=== PATIENT | male | born 1945 | race Two or more races ===

== ENCOUNTER 2020-10-11 18:23 | Inpatient (IN) | payer OTHER, MEDICAID ==
[~2020-10-11] VITALS: Ht 167.6 cm; Wt 94.6 kg
[2020-10-11 18:55] LABS: Basophils # (auto) 0.1 10 ^3/uL (0-0.2); Basophils % (auto) 0.9 % (0.0-2.0); Eosinophils # (auto) 0.1 10 ^3/uL (0-0.8); Eosinophils % (auto) 0.7 % (0.0-7.0); Hematocrit 35.2 % (41.0-53.0); Hemoglobin 11.7 g/dL (13.5-17.5); Lymphocytes # (auto) 1.3 10 ^3/uL (0.4-5.4); Lymphocytes % (auto) 16.7 % (10.0-50.0); Mean Corpuscular Hemoglobin 29.7 pg (28.0-32.0); Mean Corpuscular Hgb Conc. 33.3 g/dL (32.0-36.0); Mean Corpuscular Volume 89.4 fL (80.0-100.0); Monocytes # (auto) 0.6 10 ^3/uL (0-1.3); Monocytes % (auto) 7.7 % (0.0-12.0); Neutrophils # (auto) 5.7 10 ^3/uL (1.6-8.6); Nucleated Red Blood Cells % 0.1 %; Platelet Count (auto) 234 10^3/uL (140-450); Red Blood Cells 3.94 10^6/uL (4.5-5.90); Red Cell Distribution Width 15.5 % (11.8-14.3); White Blood Cell 7.7 10^3/uL (4.4-10.8)
[2020-10-11 19:08] LABS: Albumin 2.9 g/dL (3.4-5.0); BUN/Creatinine Ratio 14.1; Calcium 8.3 mg/dL (8.5-10.1); Magnesium 2.3 mg/dL (1.6-2.6); Potassium 4.7 mmol/L (3.5-5.1)
[2020-10-11 19:13] LABS: Bilirubin, Total 0.7 mg/dL (0.2-1.0); INR 1.08 (0.9-1.15); Partial Thromboplastin Time 28.9 sec (23.0-31.2); Total Protein 6.7 g/dL (6.4-8.2)
[2020-10-11] MEDS ORDERED: FUROSEMIDE 40 MG/4 ML VIAL IV ONE (23:30)
[2020-10-11] MEDS ORDERED: ENOXAPARIN SOD 100 MG/1 ML SYRINGE SC ONE (23:30)
[2020-10-11] MEDS ORDERED: cefTRIAXone 1GM/50ML D5W 50 ML IV ONE (23:45)
[2020-10-12] MEDS ORDERED: MORPHINE SULF INJ 2 MG/ML SYRINGE 1ML IV PRN (01:30)
[2020-10-12] MEDS ORDERED: DEXTROSE (50%) 50ML SYRG IV PRN (01:30)
[2020-10-12] MEDS ORDERED: HYDROcodone-ACET 5/325MG TAB PO PRN (01:30)
[2020-10-12] MEDS ORDERED: NITROGLYCERIN 0.4 MG SL TAB SL PRN (01:30)
[2020-10-12] MEDS ORDERED: ONDANSETRON HCL 4 MG/2 ML VIAL IV PRN (01:30)
[2020-10-12] MEDS ORDERED: DOCUSATE SOD 100 MG CAP PO PRN (01:30)
[2020-10-12 04:51] VITALS: BP 170/89
[2020-10-12] MEDS: SODIUM CHLOR 0.9% PF (SALINE LOCK) 10ML VIAL/SYR IV SCH ×3 (05:22→21:13)
[2020-10-12] MEDS: hydrALAZINE HCL 20 MG/ML VL IV PRN (05:23)
[2020-10-12 06:20] VITALS: BP 144/66
[2020-10-12] MEDS: ACCU-CHEK COMFORT CURVE STRIP VI SCH ×4 (06:36→21:13)
[2020-10-12] MEDS: InsuLIN REG 1unit/0.01ml Soln (100units/ml) SC SCH ×4 (06:37→21:12)
[2020-10-12 08:54] VITALS: BP 137/72
[2020-10-12] MEDS: MULTIPLE VITAMIN TAB PO SCH (09:42)
[2020-10-12] MEDS: FUROSEMIDE 20 MG/2 ML VIAL IV SCH (09:42)
[2020-10-12] MEDS: ZINC SULFATE 220mg CAP or TAB PO SCH (09:42)
[2020-10-12] MEDS: FAMOTIDINE (10MG/ML) 2ML VL IV SCH (09:42)
[2020-10-12] MEDS: ASCORBIC ACID 500 MG TAB PO SCH ×2 (09:43→21:13)
[2020-10-12 09:58] LABS: Basophils # (auto) 0.1 10 ^3/uL (0-0.2); Basophils % (auto) 0.9 % (0.0-2.0); Eosinophils # (auto) 0 10 ^3/uL (0-0.8); Eosinophils % (auto) 0.4 % (0.0-7.0); Hematocrit 33.8 % (41.0-53.0); Hemoglobin 11.6 g/dL (13.5-17.5); Lymphocytes # (auto) 1.3 10 ^3/uL (0.4-5.4); Lymphocytes % (auto) 16.7 % (10.0-50.0); Mean Corpuscular Hemoglobin 29.8 pg (28.0-32.0); Mean Corpuscular Hgb Conc. 34.2 g/dL (32.0-36.0); Mean Corpuscular Volume 87.2 fL (80.0-100.0); Monocytes # (auto) 0.6 10 ^3/uL (0-1.3); Platelet Count (auto) 243 10^3/uL (140-450); Red Blood Cells 3.88 10^6/uL (4.5-5.90); Red Cell Distribution Width 15.4 % (11.8-14.3)
[2020-10-12 10:01] LABS: Albumin 2.9 g/dL (3.4-5.0); Calcium 8.8 mg/dL (8.5-10.1); Potassium 3.8 mmol/L (3.5-5.1)
[2020-10-12 10:04] LABS: BUN/Creatinine Ratio 15.7; Bilirubin, Total 0.8 mg/dL (0.2-1.0); Total Protein 6.6 g/dL (6.4-8.2)
[2020-10-12] MEDS ORDERED: LACTULOSE 20Gm/30ML SOLN PO PRN (11:15)
[2020-10-12] MEDS: Glucerna Carbsteady SHAKE Vanilla 8oz PO SCH ×2 (12:38→18:00)
[2020-10-12 12:39] VITALS: BP 136/78
[2020-10-12] MEDS ORDERED: OPTISON 3ml Vial for INJ IV ONE ×2 (15:04→15:18)
[2020-10-12 16:43] VITALS: BP 148/72
[2020-10-12] MEDS ORDERED: ALOG1TAB PO (17:11)
[2020-10-12] MEDS ORDERED: FURO40TA4 PO (17:11)
[2020-10-12] MEDS ORDERED: ISOS30TA4 PO (17:11)
[2020-10-12] MEDS ORDERED: ALLO100T PO (17:11)
[2020-10-12] MEDS ORDERED: LISI-646 PO (17:11)
[2020-10-12] MEDS ORDERED: INSU1INJ19 SC (17:11)
[2020-10-12] MEDS ORDERED: METO-159 PO (17:11)
[2020-10-12] MEDS ORDERED: EZET10TA22 PO (17:11)
[2020-10-12] MEDS ORDERED: ATOR80TA PO (17:11)
[2020-10-12] MEDS ORDERED: GABA300C10 PO (17:11)
[2020-10-12] MEDS ORDERED: LEVO50TA7 PO (17:11)
[2020-10-12] MEDS ORDERED: NITR0.4S29 SL (17:11)
[2020-10-12 22:00] VITALS: BP 139/66
[2020-10-13 05:00] VITALS: BP 161/89
[2020-10-13] MEDS: SODIUM CHLOR 0.9% PF (SALINE LOCK) 10ML VIAL/SYR IV SCH ×3 (06:38→22:00)
[2020-10-13] MEDS: InsuLIN REG 1unit/0.01ml Soln (100units/ml) SC SCH ×4 (06:39→23:00)
[2020-10-13] MEDS: ACCU-CHEK COMFORT CURVE STRIP VI SCH ×4 (06:39→23:00)
[2020-10-13] MEDS: hydrALAZINE HCL 20 MG/ML VL IV PRN (06:39)
[2020-10-13 06:52] LABS: Basophils # (auto) 0.1 10 ^3/uL (0-0.2); Basophils % (auto) 0.7 % (0.0-2.0); Eosinophils # (auto) 0.1 10 ^3/uL (0-0.8); Eosinophils % (auto) 0.9 % (0.0-7.0); Hematocrit 36.9 % (41.0-53.0); Hemoglobin 12.6 g/dL (13.5-17.5); Lymphocytes # (auto) 1.9 10 ^3/uL (0.4-5.4); Lymphocytes % (auto) 22.9 % (10.0-50.0); Mean Corpuscular Hemoglobin 30.3 pg (28.0-32.0); Mean Corpuscular Hgb Conc. 34.3 g/dL (32.0-36.0); Mean Corpuscular Volume 88.4 fL (80.0-100.0); Monocytes # (auto) 0.6 10 ^3/uL (0-1.3); Neutrophils # (auto) 5.8 10 ^3/uL (1.6-8.6); Neutrophils % (auto) 68.5 % (37.0-80.0); Platelet Count (auto) 269 10^3/uL (140-450); Red Blood Cells 4.17 10^6/uL (4.5-5.90); Red Cell Distribution Width 15.4 % (11.8-14.3); White Blood Cell 8.5 10^3/uL (4.4-10.8)
[2020-10-13 07:16] LABS: Potassium 4.2 mmol/L (3.5-5.1)
[2020-10-13 07:29] LABS: Albumin 3.1 g/dL (3.4-5.0); BUN/Creatinine Ratio 13.5; Bilirubin, Total 0.9 mg/dL (0.2-1.0); Calcium 9.3 mg/dL (8.5-10.1); Total Protein 7.4 g/dL (6.4-8.2)
[2020-10-13 08:00] VITALS: BP 147/79
[2020-10-13] MEDS: ASCORBIC ACID 500 MG TAB PO SCH ×2 (08:42→23:00)
[2020-10-13] MEDS: MULTIPLE VITAMIN TAB PO SCH (08:42)
[2020-10-13] MEDS: ZINC SULFATE 220mg CAP or TAB PO SCH (08:42)
[2020-10-13] MEDS: FAMOTIDINE (10MG/ML) 2ML VL IV SCH (08:43)
[2020-10-13] MEDS: FUROSEMIDE 20 MG/2 ML VIAL IV SCH (08:43)
[2020-10-13] MEDS: Glucerna Carbsteady SHAKE Vanilla 8oz PO SCH ×3 (08:44→18:00)
[2020-10-13 09:00] VITALS: BP 147/79
[2020-10-13] MEDS ORDERED: cefTRIAXone 1GM/50ML D5W 50 ML IV ONE (11:15)
[2020-10-13] MEDS: ACETYLCYSTEINE ORAL for CIN 20%(200MG/ML) 4ML PO SCH (11:28)
[2020-10-13] MEDS: METOPROLOL TARTRATE 25 MG TAB PO SCH ×2 (11:30→23:00)
[2020-10-13] MEDS: ENOXAPARIN SOD 100 MG/1 ML SYRINGE SC SCH ×2 (11:31→23:00)
[2020-10-13 13:00] VITALS: BP_SYST 137; BP_SYST 145; BP_DIAS 70; BP_DIAS 98
[2020-10-13] MEDS: DOBUTamine 1000MCG/ML 250 ML IV SCH ×2 (14:36→21:00)
[2020-10-13] MEDS: CLINDAMYCIN 300MG IV 50 ML IV SCH ×2 (14:50→22:00)
[2020-10-13 17:00] VITALS: BP 150/70
[2020-10-13 22:00] VITALS: BP 157/76
[2020-10-14] MEDS: ACETYLCYSTEINE ORAL for CIN 20%(200MG/ML) 4ML PO SCH ×3 (00:12→22:28)
[2020-10-14 02:09] LABS: Urine Bacteria FEW /hpf (None Seen); Urine Blood Negative /uL (Negative); Urine Hyaline Cast MOD /lpf (0 - 2); Urine Specific Gravity 1.023 (1.001-1.035); Urine WBC 1 /hpf (0 - 3)
[2020-10-14 05:00] VITALS: BP 156/80
[2020-10-14] MEDS: DOBUTamine 1000MCG/ML 250 ML IV SCH ×3 (05:04→22:29)
[2020-10-14] MEDS: SODIUM CHLOR 0.9% PF (SALINE LOCK) 10ML VIAL/SYR IV SCH ×3 (06:23→21:38)
[2020-10-14] MEDS: CLINDAMYCIN 300MG IV 50 ML IV SCH (06:23)
[2020-10-14] MEDS: InsuLIN REG 1unit/0.01ml Soln (100units/ml) SC SCH ×4 (06:31→21:48)
[2020-10-14] MEDS: ACCU-CHEK COMFORT CURVE STRIP VI SCH ×4 (06:32→21:39)
[2020-10-14] MEDS ORDERED: LIDOCAINE 2%HCL (LOCAL ANESTH.) INJ 20ML MDV ONE (07:17)
[2020-10-14] MEDS ORDERED: IODIXANOL 320MG/ML 100ML BTL IV ONE ×2 (07:17→09:13)
[2020-10-14 07:53] LABS: Basophils # (auto) 0.1 10 ^3/uL (0-0.2); Basophils % (auto) 0.9 % (0.0-2.0); Eosinophils # (auto) 0 10 ^3/uL (0-0.8); Eosinophils % (auto) 0.2 % (0.0-7.0); Hematocrit 35.3 % (41.0-53.0); Hemoglobin 11.6 g/dL (13.5-17.5); Lymphocytes % (auto) 12.1 % (10.0-50.0); Mean Corpuscular Hemoglobin 28.9 pg (28.0-32.0); Mean Corpuscular Hgb Conc. 32.8 g/dL (32.0-36.0); Mean Corpuscular Volume 88.2 fL (80.0-100.0); Monocytes # (auto) 0.6 10 ^3/uL (0-1.3); Monocytes % (auto) 7.6 % (0.0-12.0); Neutrophils # (auto) 6.2 10 ^3/uL (1.6-8.6); Neutrophils % (auto) 79.2 % (37.0-80.0); Nucleated Red Blood Cells % 0.1 %; Platelet Count (auto) 271 10^3/uL (140-450); Red Blood Cells 4.01 10^6/uL (4.5-5.90); Red Cell Distribution Width 15.7 % (11.8-14.3); White Blood Cell 7.9 10^3/uL (4.4-10.8)
[2020-10-14] MEDS: Glucerna Carbsteady SHAKE Vanilla 8oz PO SCH ×3 (07:53→18:55)
[2020-10-14] MEDS ORDERED: fentaNYL CITRATE 100 MCG/2 ML VL ONE (08:00)
[2020-10-14] MEDS ORDERED: HEPARIN SODIUM (PORCINE) 5000 UNITS/ML 1ML VIAL ONE (08:00)
[2020-10-14] MEDS ORDERED: ANGIOMAX 250 MG VIAL IV ONE ×2 (08:00→09:12)
[2020-10-14] MEDS ORDERED: MIDAZOLAM HCL 1MG/1ML-2 ML VIAL ONE (08:00)
[2020-10-14] MEDS ORDERED: VERAPAMIL 2.5MG/ML INJ 2ML VIAL IV ONE (08:00)
[2020-10-14] MEDS ORDERED: SODIUM CHL 0.9% 50 ML ONE ×2 (08:01→09:12)
[2020-10-14 08:07] LABS: BUN/Creatinine Ratio 12.3; Calcium 9.5 mg/dL (8.5-10.1); Potassium 4.4 mmol/L (3.5-5.1)
[2020-10-14 08:10] LABS: INR 1.03 (0.9-1.15)
[2020-10-14 08:43] VITALS: BP 154/71
[2020-10-14] MEDS ORDERED: cefTRIAXone 1GM/50ML D5W 50 ML IV SCH (09:00)
[2020-10-14] MEDS: MULTIPLE VITAMIN TAB PO SCH (10:00)
[2020-10-14] MEDS: ASCORBIC ACID 500 MG TAB PO SCH ×2 (10:00→21:53)
[2020-10-14] MEDS: FAMOTIDINE (10MG/ML) 2ML VL IV SCH (10:00)
[2020-10-14] MEDS: ENOXAPARIN SOD 100 MG/1 ML SYRINGE SC SCH ×2 (10:00→22:28)
[2020-10-14] MEDS: ZINC SULFATE 220mg CAP or TAB PO SCH (10:00)
[2020-10-14] MEDS: METOPROLOL TARTRATE 25 MG TAB PO SCH ×2 (12:30→22:28)
[2020-10-14 13:00] VITALS: BP 143/91
[2020-10-14] MEDS ORDERED: levoFLOXacin 500MG 100 ML IV ONE (14:15)
[2020-10-14 17:00] VITALS: BP 150/81
[2020-10-14] MEDS: ATORVASTATIN 20 MG TAB PO SCH (21:53)
[2020-10-14 22:00] VITALS: BP 114/71
[2020-10-14] MEDS ORDERED: INSULIN LANTUS (GLARGINE) 1 /0.01ml (100units/ml) SC SCH (22:00)
[2020-10-15 05:08] VITALS: BP 125/61
[2020-10-15] MEDS: SODIUM CHLOR 0.9% PF (SALINE LOCK) 10ML VIAL/SYR IV SCH ×3 (05:26→21:25)
[2020-10-15] MEDS: ACCU-CHEK COMFORT CURVE STRIP VI SCH ×4 (06:21→22:07)
[2020-10-15] MEDS: LEVOTHYROXINE SODIUM 50 MCG TAB PO SCH (06:21)
[2020-10-15] MEDS: InsuLIN REG 1unit/0.01ml Soln (100units/ml) SC SCH ×4 (06:26→22:00)
[2020-10-15 06:54] LABS: Magnesium 2.3 mg/dL (1.6-2.6); Potassium 4.7 mmol/L (3.5-5.1)
[2020-10-15 07:02] LABS: Albumin 2.8 g/dL (3.4-5.0); BUN/Creatinine Ratio 9.6; Bilirubin, Total 0.9 mg/dL (0.2-1.0); Calcium 8.7 mg/dL (8.5-10.1); Total Protein 6.8 g/dL (6.4-8.2)
[2020-10-15] MEDS: DOBUTamine 1000MCG/ML 250 ML IV SCH ×2 (08:05→17:14)
[2020-10-15 08:30] VITALS: BP 129/63
[2020-10-15] MEDS: levoFLOXacin 250MG 50 ML IV SCH (09:35)
[2020-10-15] MEDS: Glucerna Carbsteady SHAKE Vanilla 8oz PO SCH ×3 (09:35→18:26)
[2020-10-15] MEDS: FAMOTIDINE (10MG/ML) 2ML VL IV SCH (09:36)
[2020-10-15] MEDS: ZINC SULFATE 220mg CAP or TAB PO SCH (09:36)
[2020-10-15] MEDS: MULTIPLE VITAMIN TAB PO SCH (09:37)
[2020-10-15] MEDS: METOPROLOL TARTRATE 25 MG TAB PO SCH ×2 (09:37→21:25)
[2020-10-15] MEDS: ASCORBIC ACID 500 MG TAB PO SCH ×2 (09:37→21:26)
[2020-10-15] MEDS: CLOPIDOGREL BISULFATE 75 MG TAB PO SCH (09:37)
[2020-10-15] MEDS: ENOXAPARIN SOD 100 MG/1 ML SYRINGE SC SCH (09:38)
[2020-10-15] MEDS ORDERED: ASPirin 81 mg TAB PO SCH (10:00)
[2020-10-15 12:30] VITALS: BP 152/69
[2020-10-15] MEDS ORDERED: CHOLECALCIFEROL (VITD3) 2,000 UNIT CAP/TAB PO ONE (13:45)
[2020-10-15 17:00] VITALS: BP 119/69
[2020-10-15] MEDS ORDERED: BUMETANIDE 2.5mg/10ml (0.25 mg/ml) INJ IV ONE (19:45)
[2020-10-15] MEDS: ATORVASTATIN 20 MG TAB PO SCH (21:25)
[2020-10-15 22:00] VITALS: BP 118/73
[2020-10-15] MEDS: INSULIN LANTUS (GLARGINE) 1 /0.01ml (100units/ml) SC SCH (22:06)
[2020-10-16] MEDS: DOBUTamine 1000MCG/ML 250 ML IV SCH (00:59)
[2020-10-16 04:46] VITALS: BP 133/77
[2020-10-16] MEDS: SODIUM CHLOR 0.9% PF (SALINE LOCK) 10ML VIAL/SYR IV SCH ×3 (06:29→22:00)
[2020-10-16] MEDS: InsuLIN REG 1unit/0.01ml Soln (100units/ml) SC SCH ×5 (06:29→22:00)
[2020-10-16] MEDS: ACCU-CHEK COMFORT CURVE STRIP VI SCH ×4 (06:29→21:30)
[2020-10-16 06:46] LABS: BUN/Creatinine Ratio 9.3; Calcium 8.5 mg/dL (8.5-10.1); Magnesium 2.7 mg/dL (1.6-2.6)
[2020-10-16] MEDS: LEVOTHYROXINE SODIUM 50 MCG TAB PO SCH (06:49)
[2020-10-16 06:54] LABS: Potassium 5.9 mmol/L (3.5-5.1)
[2020-10-16] MEDS: Glucerna Carbsteady SHAKE Vanilla 8oz PO SCH ×3 (08:00→18:14)
[2020-10-16] MEDS ORDERED: SODIUM ZIRCONIUM CYCL 10 GM PAK PO ONE (08:30)
[2020-10-16 09:00] VITALS: BP 132/69
[2020-10-16] MEDS ORDERED: ENOXAPARIN SOD 100 MG/1 ML SYRINGE SC SCH (10:00)
[2020-10-16] MEDS ORDERED: BUMETANIDE 2.5mg/10ml (0.25 mg/ml) INJ IV SCH (10:00)
[2020-10-16] MEDS: METOPROLOL TARTRATE 25 MG TAB PO SCH ×3 (10:00→23:00)
[2020-10-16] MEDS ORDERED: ALBUTEROL SULF 2.5 MG/0.5ML(0.5%) NEB SOLN NEB ONE (10:30)
[2020-10-16] MEDS ORDERED: SODIUM BICARBONATE 8.4% INJ 50ML SYRINGE IV ONE (10:30)
[2020-10-16] MEDS: FAMOTIDINE (10MG/ML) 2ML VL IV SCH (11:38)
[2020-10-16] MEDS: BUMETANIDE 2.5mg/10ml (0.25 mg/ml) INJ IV SCH ×2 (11:51→17:57)
[2020-10-16] MEDS: CHOLECALCIFEROL (VITD3) 2,000 UNIT CAP/TAB PO SCH (11:52)
[2020-10-16] MEDS: CLOPIDOGREL BISULFATE 75 MG TAB PO SCH (11:52)
[2020-10-16] MEDS: ASCORBIC ACID 500 MG TAB PO SCH ×2 (11:53→22:00)
[2020-10-16] MEDS: levoFLOXacin 250MG 50 ML IV SCH (11:53)
[2020-10-16 12:57] VITALS: BP 127/75
[2020-10-16] MEDS ORDERED: CLINDAMYCIN 300MG IV 50 ML IV ONE (15:00)
[2020-10-16] MEDS: SODIUM ZIRCONIUM CYCL 10 GM PAK PO SCH ×2 (15:20→22:00)
[2020-10-16 17:00] VITALS: BP 117/67
[2020-10-16] MEDS: CEFEPIME 1 GM in SODIUM CHL 0.9% 50 ML IV ONE ×2 (18:00→19:28)
[2020-10-16 22:00] VITALS: BP 116/73
[2020-10-16] MEDS ORDERED: SODIUM ZIRCONIUM CYCL 10 GM PAK PO SCH (22:00)
[2020-10-16] MEDS: CLINDAMYCIN 300MG IV 50 ML IV SCH (22:00)
[2020-10-16] MEDS: INSULIN LANTUS (GLARGINE) 1 /0.01ml (100units/ml) SC SCH (22:00)
[2020-10-16] MEDS: ATORVASTATIN 20 MG TAB PO SCH (22:00)
[2020-10-17 05:05] VITALS: BP 131/73
[2020-10-17] MEDS: METOPROLOL TARTRATE 25 MG TAB PO SCH ×2 (05:59→11:38)
[2020-10-17] MEDS: SODIUM ZIRCONIUM CYCL 10 GM PAK PO SCH ×3 (06:00→23:14)
[2020-10-17] MEDS: BUMETANIDE 2.5mg/10ml (0.25 mg/ml) INJ IV SCH (06:20)
[2020-10-17] MEDS: SODIUM CHLOR 0.9% PF (SALINE LOCK) 10ML VIAL/SYR IV SCH ×3 (06:20→23:11)
[2020-10-17] MEDS: CLINDAMYCIN 300MG IV 50 ML IV SCH ×3 (06:20→23:11)
[2020-10-17] MEDS: LEVOTHYROXINE SODIUM 50 MCG TAB PO SCH (07:00)
[2020-10-17 07:18] LABS: Potassium 4.6 mmol/L (3.5-5.1)
[2020-10-17 07:25] LABS: Calcium 8.3 mg/dL (8.5-10.1)
[2020-10-17] MEDS: Glucerna Carbsteady SHAKE Vanilla 8oz PO SCH ×3 (08:00→18:22)
[2020-10-17 09:00] VITALS: BP 115/68
[2020-10-17] MEDS ORDERED: BUMETANIDE 2.5mg/10ml (0.25 mg/ml) INJ IV SCH (10:00)
[2020-10-17] MEDS: ALBUMIN 25% 50 ML IV SCH ×2 (11:33→18:32)
[2020-10-17] MEDS: FAMOTIDINE (10MG/ML) 2ML VL IV SCH (11:39)
[2020-10-17] MEDS: CEFEPIME 1 GM in SODIUM CHL 0.9% 50 ML IV SCH (11:39)
[2020-10-17] MEDS: CHOLECALCIFEROL (VITD3) 2,000 UNIT CAP/TAB PO SCH (11:40)
[2020-10-17] MEDS: CLOPIDOGREL BISULFATE 75 MG TAB PO SCH (11:40)
[2020-10-17] MEDS: ASPirin 81 mg TAB PO SCH (11:40)
[2020-10-17] MEDS: ASCORBIC ACID 500 MG TAB PO SCH ×2 (11:40→23:14)
[2020-10-17] MEDS: ENOXAPARIN SOD 30 MG/0.3 ML SYRINGE SC SCH (11:40)
[2020-10-17] MEDS ORDERED: DEXTROSE (50%) 50ML SYRG IV PRN (12:30)
[2020-10-17 13:00] VITALS: BP 133/76
[2020-10-17 17:00] VITALS: BP 138/84
[2020-10-17] MEDS: InsuLIN REG 1unit/0.01ml Soln (100units/ml) SC SCH ×2 (17:00→22:00)
[2020-10-17] MEDS: ACCU-CHEK COMFORT CURVE STRIP VI SCH ×2 (17:00→22:00)
[2020-10-17 22:00] VITALS: BP 123/66
[2020-10-17] MEDS: INSULIN LANTUS (GLARGINE) 1 /0.01ml (100units/ml) SC SCH (22:00)
[2020-10-17] MEDS: ATORVASTATIN 20 MG TAB PO SCH (23:11)
[2020-10-18 05:00] VITALS: BP 132/71
[2020-10-18] MEDS: ALBUMIN 25% 50 ML IV SCH (05:02)
[2020-10-18 06:00] LABS: Basophils # (auto) 0 10 ^3/uL (0-0.2); Basophils % (auto) 0.5 % (0.0-2.0); Eosinophils # (auto) 0 10 ^3/uL (0-0.8); Eosinophils % (auto) 0.3 % (0.0-7.0); Hematocrit 31.1 % (41.0-53.0); Hemoglobin 10.4 g/dL (13.5-17.5); Lymphocytes # (auto) 0.8 10 ^3/uL (0.4-5.4); Lymphocytes % (auto) 11.1 % (10.0-50.0); Mean Corpuscular Hemoglobin 29.4 pg (28.0-32.0); Mean Corpuscular Hgb Conc. 33.5 g/dL (32.0-36.0); Mean Corpuscular Volume 87.7 fL (80.0-100.0); Monocytes # (auto) 0.7 10 ^3/uL (0-1.3); Monocytes % (auto) 9.2 % (0.0-12.0); Neutrophils # (auto) 5.7 10 ^3/uL (1.6-8.6); Neutrophils % (auto) 78.9 % (37.0-80.0); Platelet Count (auto) 222 10^3/uL (140-450); Red Blood Cells 3.54 10^6/uL (4.5-5.90); Red Cell Distribution Width 15.7 % (11.8-14.3); White Blood Cell 7.3 10^3/uL (4.4-10.8)
[2020-10-18 06:23] LABS: Calcium 7.8 mg/dL (8.5-10.1)
[2020-10-18 06:25] LABS: BUN/Creatinine Ratio 11.3
[2020-10-18 06:30] LABS: Potassium 5.8 mmol/L (3.5-5.1)
[2020-10-18] MEDS: SODIUM CHLOR 0.9% PF (SALINE LOCK) 10ML VIAL/SYR IV SCH ×3 (06:35→21:56)
[2020-10-18] MEDS: CLINDAMYCIN 300MG IV 50 ML IV SCH ×3 (06:35→21:56)
[2020-10-18] MEDS: SODIUM ZIRCONIUM CYCL 10 GM PAK PO SCH ×3 (06:35→21:57)
[2020-10-18] MEDS: ACCU-CHEK COMFORT CURVE STRIP VI SCH ×4 (06:36→21:59)
[2020-10-18] MEDS: LEVOTHYROXINE SODIUM 50 MCG TAB PO SCH (06:36)
[2020-10-18] MEDS: InsuLIN REG 1unit/0.01ml Soln (100units/ml) SC SCH ×4 (06:36→21:59)
[2020-10-18] MEDS: Glucerna Carbsteady SHAKE Vanilla 8oz PO SCH ×3 (08:00→18:26)
[2020-10-18 09:00] VITALS: BP 127/80
[2020-10-18] MEDS ORDERED: SODIUM ZIRCONIUM CYCL 10 GM PAK PO ONE (09:15)
[2020-10-18] MEDS ORDERED: SODIUM BICARBONATE 8.4% INJ 50ML SYRINGE IV ONE (09:15)
[2020-10-18] MEDS ORDERED: ALBUTEROL SULF 2.5 MG/0.5ML(0.5%) NEB SOLN NEB ONE (09:15)
[2020-10-18] MEDS ORDERED: SODIUM BICARBONATE 8.4 % INJ 50ML VIAL IV ONE (09:30)
[2020-10-18] MEDS ORDERED: CALCIUM GLUC 4.65meq/50ml D5AE 50 ML IV ONE (09:30)
[2020-10-18] MEDS ORDERED: InsuLIN REG 1unit/0.01ml Soln (100units/ml) IV ONE (09:30)
[2020-10-18] MEDS ORDERED: SODIUM ZIRCONIUM CYCL 10 GM PAK PO SCH (09:30)
[2020-10-18] MEDS ORDERED: DEXTROSE (50%) 50ML SYRG IV ONE (09:30)
[2020-10-18] MEDS: BUMETANIDE 2.5mg/10ml (0.25 mg/ml) INJ IV SCH ×2 (10:00→17:48)
[2020-10-18] MEDS: FLORASTOR (S. BOULARDII) 250 MG CAP PO SCH (11:45)
[2020-10-18] MEDS: CEFEPIME 1 GM in SODIUM CHL 0.9% 50 ML IV SCH (11:45)
[2020-10-18] MEDS: ASPirin 81 mg TAB PO SCH (11:45)
[2020-10-18] MEDS: CLOPIDOGREL BISULFATE 75 MG TAB PO SCH (11:46)
[2020-10-18] MEDS: ENOXAPARIN SOD 30 MG/0.3 ML SYRINGE SC SCH (12:02)
[2020-10-18] MEDS: CHOLECALCIFEROL (VITD3) 2,000 UNIT CAP/TAB PO SCH (12:02)
[2020-10-18] MEDS: ASCORBIC ACID 500 MG TAB PO SCH ×2 (12:02→21:58)
[2020-10-18 13:00] VITALS: BP 139/73
[2020-10-18] MEDS: ACETAMINOPHEN 325 MG TAB PO PRN (13:31)
[2020-10-18 16:55] VITALS: BP 138/73
[2020-10-18 17:15] LABS: BUN/Creatinine Ratio 11.9; Calcium 7.9 mg/dL (8.5-10.1); Potassium 4.2 mmol/L (3.5-5.1)
[2020-10-18] MEDS: ATORVASTATIN 20 MG TAB PO SCH (21:56)
[2020-10-18] MEDS: METOPROLOL TARTRATE 25 MG TAB PO SCH (21:58)
[2020-10-18] MEDS: INSULIN LANTUS (GLARGINE) 1 /0.01ml (100units/ml) SC SCH (21:59)
[2020-10-18 22:00] VITALS: BP 144/71
[2020-10-19 05:00] VITALS: BP 143/77
[2020-10-19 05:42] LABS: Basophils # (auto) 0 10 ^3/uL (0-0.2); Basophils % (auto) 0.6 % (0.0-2.0); Eosinophils # (auto) 0.1 10 ^3/uL (0-0.8); Eosinophils % (auto) 1.6 % (0.0-7.0); Hematocrit 30.8 % (41.0-53.0); Hemoglobin 10.6 g/dL (13.5-17.5); Lymphocytes # (auto) 0.6 10 ^3/uL (0.4-5.4); Lymphocytes % (auto) 7.8 % (10.0-50.0); Mean Corpuscular Hemoglobin 29.9 pg (28.0-32.0); Mean Corpuscular Hgb Conc. 34.3 g/dL (32.0-36.0); Mean Corpuscular Volume 87.1 fL (80.0-100.0); Monocytes # (auto) 0.8 10 ^3/uL (0-1.3); Monocytes % (auto) 10.1 % (0.0-12.0); Neutrophils # (auto) 6.4 10 ^3/uL (1.6-8.6); Neutrophils % (auto) 79.9 % (37.0-80.0); Platelet Count (auto) 240 10^3/uL (140-450); Red Blood Cells 3.54 10^6/uL (4.5-5.90); Red Cell Distribution Width 15.1 % (11.8-14.3); White Blood Cell 8.1 10^3/uL (4.4-10.8)
[2020-10-19] MEDS: BUMETANIDE 2.5mg/10ml (0.25 mg/ml) INJ IV SCH ×3 (06:07→18:05)
[2020-10-19] MEDS: CLINDAMYCIN 300MG IV 50 ML IV SCH ×3 (06:07→20:21)
[2020-10-19] MEDS: SODIUM CHLOR 0.9% PF (SALINE LOCK) 10ML VIAL/SYR IV SCH ×3 (06:08→20:22)
[2020-10-19] MEDS: SODIUM ZIRCONIUM CYCL 10 GM PAK PO SCH (06:08)
[2020-10-19] MEDS: LEVOTHYROXINE SODIUM 50 MCG TAB PO SCH (06:08)
[2020-10-19] MEDS: ACCU-CHEK COMFORT CURVE STRIP VI SCH ×4 (06:08→20:22)
[2020-10-19] MEDS: InsuLIN REG 1unit/0.01ml Soln (100units/ml) SC SCH ×4 (06:09→22:00)
[2020-10-19 06:13] LABS: Potassium 4.2 mmol/L (3.5-5.1)
[2020-10-19 06:18] LABS: BUN/Creatinine Ratio 12.5; Calcium 7.7 mg/dL (8.5-10.1)
[2020-10-19] MEDS: Glucerna Carbsteady SHAKE Vanilla 8oz PO SCH ×3 (08:00→18:05)
[2020-10-19 09:00] VITALS: BP 147/84
[2020-10-19] MEDS: CHOLECALCIFEROL (VITD3) 2,000 UNIT CAP/TAB PO SCH (10:17)
[2020-10-19] MEDS: FLORASTOR (S. BOULARDII) 250 MG CAP PO SCH (10:18)
[2020-10-19] MEDS: CLOPIDOGREL BISULFATE 75 MG TAB PO SCH (10:18)
[2020-10-19] MEDS: ASCORBIC ACID 500 MG TAB PO SCH ×2 (10:18→20:21)
[2020-10-19] MEDS: ASPirin 81 mg TAB PO SCH (10:18)
[2020-10-19] MEDS: METOPROLOL TARTRATE 25 MG TAB PO SCH ×2 (10:19→20:21)
[2020-10-19] MEDS: FAMOTIDINE (10MG/ML) 2ML VL IV SCH (10:19)
[2020-10-19] MEDS: ENOXAPARIN SOD 30 MG/0.3 ML SYRINGE SC SCH (10:20)
[2020-10-19] MEDS: CEFEPIME 1 GM in SODIUM CHL 0.9% 50 ML IV SCH (10:20)
[2020-10-19 13:00] VITALS: BP 123/76
[2020-10-19] MEDS: SOD CHL 0.45% 1,000 ML IV SCH (15:33)
[2020-10-19 16:46] VITALS: BP 139/75
[2020-10-19] MEDS: ATORVASTATIN 20 MG TAB PO SCH (20:20)
[2020-10-19 22:00] VITALS: BP 148/79
[2020-10-19] MEDS: INSULIN LANTUS (GLARGINE) 1 /0.01ml (100units/ml) SC SCH (22:00)
[2020-10-20 05:07] VITALS: BP 149/77
[2020-10-20] MEDS: SOD CHL 0.45% 1,000 ML IV SCH (05:35)
[2020-10-20] MEDS: BUMETANIDE 2.5mg/10ml (0.25 mg/ml) INJ IV SCH ×2 (05:36→18:39)
[2020-10-20] MEDS: CLINDAMYCIN 300MG IV 50 ML IV SCH ×3 (05:36→21:30)
[2020-10-20] MEDS: SODIUM CHLOR 0.9% PF (SALINE LOCK) 10ML VIAL/SYR IV SCH ×2 (05:36→15:03)
[2020-10-20] MEDS: ACCU-CHEK COMFORT CURVE STRIP VI SCH ×4 (05:37→21:32)
[2020-10-20] MEDS: LEVOTHYROXINE SODIUM 50 MCG TAB PO SCH (05:37)
[2020-10-20] MEDS: InsuLIN REG 1unit/0.01ml Soln (100units/ml) SC SCH ×4 (05:37→21:30)
[2020-10-20 06:07] LABS: Basophils # (auto) 0.1 10 ^3/uL (0-0.2); Eosinophils # (auto) 0.2 10 ^3/uL (0-0.8); Eosinophils % (auto) 2.4 % (0.0-7.0); Hematocrit 30.6 % (41.0-53.0); Hemoglobin 10.8 g/dL (13.5-17.5); Lymphocytes # (auto) 0.9 10 ^3/uL (0.4-5.4); Lymphocytes % (auto) 10.8 % (10.0-50.0); Mean Corpuscular Hemoglobin 30.4 pg (28.0-32.0); Mean Corpuscular Hgb Conc. 35.3 g/dL (32.0-36.0); Mean Corpuscular Volume 86.2 fL (80.0-100.0); Monocytes % (auto) 11.7 % (0.0-12.0); Neutrophils # (auto) 6.2 10 ^3/uL (1.6-8.6); Neutrophils % (auto) 74.1 % (37.0-80.0); Platelet Count (auto) 253 10^3/uL (140-450); Red Blood Cells 3.55 10^6/uL (4.5-5.90); Red Cell Distribution Width 15.2 % (11.8-14.3); White Blood Cell 8.4 10^3/uL (4.4-10.8)
[2020-10-20 06:13] LABS: INR 1.08 (0.9-1.15)
[2020-10-20 06:19] LABS: Potassium 3.3 mmol/L (3.5-5.1)
[2020-10-20 06:26] LABS: Albumin 3.2 g/dL (3.4-5.0); BUN/Creatinine Ratio 14.4; Bilirubin, Total 0.8 mg/dL (0.2-1.0); Calcium 7.7 mg/dL (8.5-10.1)
[2020-10-20] MEDS: Glucerna Carbsteady SHAKE Vanilla 8oz PO SCH ×3 (08:51→18:40)
[2020-10-20 09:00] VITALS: BP 140/71
[2020-10-20 09:42] LABS: Folate (Folic Acid) > 24.00 ng/mL (5.38-24)
[2020-10-20] MEDS ORDERED: MULTIPLE VITAMIN TAB PO ONE (10:45)
[2020-10-20] MEDS ORDERED: POTASSIUM CHLORIDE 8 MEQ TAB PO ONE (10:45)
[2020-10-20] MEDS: ASPirin 81 mg TAB PO SCH (10:59)
[2020-10-20] MEDS: CHOLECALCIFEROL (VITD3) 2,000 UNIT CAP/TAB PO SCH (11:00)
[2020-10-20] MEDS: ASCORBIC ACID 500 MG TAB PO SCH ×2 (11:00→21:32)
[2020-10-20] MEDS: CLOPIDOGREL BISULFATE 75 MG TAB PO SCH (11:00)
[2020-10-20] MEDS: ENOXAPARIN SOD 30 MG/0.3 ML SYRINGE SC SCH (11:00)
[2020-10-20] MEDS: FLORASTOR (S. BOULARDII) 250 MG CAP PO SCH (11:01)
[2020-10-20] MEDS: CEFEPIME 1 GM in SODIUM CHL 0.9% 50 ML IV SCH (11:01)
[2020-10-20] MEDS: METOPROLOL TARTRATE 25 MG TAB PO SCH ×2 (11:01→21:31)
[2020-10-20 13:00] VITALS: BP 127/65
[2020-10-20 17:00] VITALS: BP 145/78
[2020-10-20 18:20] LABS: BUN/Creatinine Ratio 15.5; Calcium 7.8 mg/dL (8.5-10.1); Potassium 3.9 mmol/L (3.5-5.1)
[2020-10-20] MEDS: INSULIN LANTUS (GLARGINE) 1 /0.01ml (100units/ml) SC SCH (21:30)
[2020-10-20] MEDS: ATORVASTATIN 20 MG TAB PO SCH (21:31)
[2020-10-20 22:00] VITALS: BP 151/77
[2020-10-21] MEDS: SODIUM CHLOR 0.9% PF (SALINE LOCK) 10ML VIAL/SYR IV SCH ×4 (02:21→22:06)
[2020-10-21 05:00] VITALS: BP 136/73
[2020-10-21 05:35] LABS: Basophils # (auto) 0.1 10 ^3/uL (0-0.2); Basophils % (auto) 0.7 % (0.0-2.0); Eosinophils # (auto) 0.2 10 ^3/uL (0-0.8); Eosinophils % (auto) 2.6 % (0.0-7.0); Hematocrit 31.3 % (41.0-53.0); Hemoglobin 10.9 g/dL (13.5-17.5); Lymphocytes # (auto) 1.1 10 ^3/uL (0.4-5.4); Lymphocytes % (auto) 12.3 % (10.0-50.0); Mean Corpuscular Hemoglobin 30.1 pg (28.0-32.0); Mean Corpuscular Hgb Conc. 34.9 g/dL (32.0-36.0); Mean Corpuscular Volume 86.2 fL (80.0-100.0); Monocytes # (auto) 1.2 10 ^3/uL (0-1.3); Monocytes % (auto) 13.7 % (0.0-12.0); Neutrophils # (auto) 6.1 10 ^3/uL (1.6-8.6); Neutrophils % (auto) 70.7 % (37.0-80.0); Nucleated Red Blood Cells % 0.3 %; Platelet Count (auto) 268 10^3/uL (140-450); Red Blood Cells 3.63 10^6/uL (4.5-5.90); Red Cell Distribution Width 15.4 % (11.8-14.3); White Blood Cell 8.7 10^3/uL (4.4-10.8)
[2020-10-21 05:52] LABS: Calcium 7.9 mg/dL (8.5-10.1); Potassium 3.3 mmol/L (3.5-5.1)
[2020-10-21 05:55] LABS: BUN/Creatinine Ratio 17.3
[2020-10-21] MEDS: CLINDAMYCIN 300MG IV 50 ML IV SCH ×3 (06:14→21:54)
[2020-10-21] MEDS: LEVOTHYROXINE SODIUM 50 MCG TAB PO SCH (06:15)
[2020-10-21] MEDS: ACCU-CHEK COMFORT CURVE STRIP VI SCH ×4 (06:15→22:06)
[2020-10-21] MEDS: InsuLIN REG 1unit/0.01ml Soln (100units/ml) SC SCH ×4 (06:16→21:31)
[2020-10-21] MEDS: BUMETANIDE 1mg/4ml VIAL (0.25mg/ml) IV SCH ×2 (06:34→17:33)
[2020-10-21] MEDS: Glucerna Carbsteady SHAKE Vanilla 8oz PO SCH ×3 (08:23→17:33)
[2020-10-21 08:46] VITALS: BP 151/78
[2020-10-21] MEDS: CEFEPIME 1 GM in SODIUM CHL 0.9% 50 ML IV SCH (10:24)
[2020-10-21] MEDS: FAMOTIDINE (10MG/ML) 2ML VL IV SCH (10:24)
[2020-10-21] MEDS: FLORASTOR (S. BOULARDII) 250 MG CAP PO SCH (10:25)
[2020-10-21] MEDS: ASPirin 81 mg TAB PO SCH (10:25)
[2020-10-21] MEDS: ENOXAPARIN SOD 30 MG/0.3 ML SYRINGE SC SCH (10:26)
[2020-10-21] MEDS: ASCORBIC ACID 500 MG TAB PO SCH ×2 (10:26→21:53)
[2020-10-21] MEDS: CLOPIDOGREL BISULFATE 75 MG TAB PO SCH (10:26)
[2020-10-21] MEDS: METOPROLOL TARTRATE 25 MG TAB PO SCH ×2 (10:26→21:53)
[2020-10-21] MEDS: MULTIPLE VITAMIN TAB PO SCH (10:26)
[2020-10-21] MEDS: CHOLECALCIFEROL (VITD3) 2,000 UNIT CAP/TAB PO SCH (10:26)
[2020-10-21] MEDS ORDERED: POTASSIUM EFFERVESENT TAB 25 MEQ PO ONE (12:00)
[2020-10-21 12:48] VITALS: BP 135/73
[2020-10-21 16:30] VITALS: BP 144/77
[2020-10-21] MEDS: ATORVASTATIN 20 MG TAB PO SCH (21:53)
[2020-10-21 22:00] VITALS: BP 148/74
[2020-10-21] MEDS: INSULIN LANTUS (GLARGINE) 1 /0.01ml (100units/ml) SC SCH (22:05)
[2020-10-22 05:00] VITALS: BP 146/76
[2020-10-22] MEDS: BUMETANIDE 1mg/4ml VIAL (0.25mg/ml) IV SCH (06:10)
[2020-10-22] MEDS: InsuLIN REG 1unit/0.01ml Soln (100units/ml) SC SCH ×2 (06:11→11:30)
[2020-10-22] MEDS: LEVOTHYROXINE SODIUM 50 MCG TAB PO SCH (06:11)
[2020-10-22] MEDS: SODIUM CHLOR 0.9% PF (SALINE LOCK) 10ML VIAL/SYR IV SCH (06:11)
[2020-10-22] MEDS: CLINDAMYCIN 300MG IV 50 ML IV SCH (06:11)
[2020-10-22] MEDS: ACCU-CHEK COMFORT CURVE STRIP VI SCH ×2 (06:12→11:30)
[2020-10-22 07:36] LABS: Potassium 3.2 mmol/L (3.5-5.1)
[2020-10-22 07:39] LABS: BUN/Creatinine Ratio 18.9
[2020-10-22] MEDS: Glucerna Carbsteady SHAKE Vanilla 8oz PO SCH ×2 (08:22→12:00)
[2020-10-22] MEDS: ACETAMINOPHEN 325 MG TAB PO PRN (08:23)
[2020-10-22 09:04] VITALS: BP 143/78
[2020-10-22] MEDS: CLOPIDOGREL BISULFATE 75 MG TAB PO SCH (10:00)
[2020-10-22] MEDS: METOPROLOL TARTRATE 25 MG TAB PO SCH (10:00)
[2020-10-22] MEDS: CHOLECALCIFEROL (VITD3) 2,000 UNIT CAP/TAB PO SCH (10:00)
[2020-10-22] MEDS: ASPirin 81 mg TAB PO SCH (10:00)
[2020-10-22] MEDS: FLORASTOR (S. BOULARDII) 250 MG CAP PO SCH (10:00)
[2020-10-22] MEDS: CEFEPIME 1 GM in SODIUM CHL 0.9% 50 ML IV SCH (10:00)
[2020-10-22] MEDS: ASCORBIC ACID 500 MG TAB PO SCH (10:00)
[2020-10-22] MEDS: ENOXAPARIN SOD 30 MG/0.3 ML SYRINGE SC SCH (10:00)
[2020-10-22] MEDS: MULTIPLE VITAMIN TAB PO SCH (10:00)
[2020-10-22] MEDS ORDERED: ASPI1CHW15 PO (10:19)
[2020-10-22] MEDS ORDERED: CHOL1CAP47 PO (10:19)
[2020-10-22] MEDS ORDERED: MET25T PO (10:19)
[2020-10-22] MEDS ORDERED: CLOP75TA28 PO (10:19)
[2020-10-22] MEDS ORDERED: ATOR20TA50 PO (10:19)
[2020-10-22] MEDS ORDERED: FURO40TA4 PO (10:19)
[2020-10-22] MEDS ORDERED: PANT40TA2 PO (10:19)
[2020-10-22] MEDS ORDERED: POTASSIUM CHL 20 Meq TABLET PO ONE (11:30)
[2020-10-22 12:36] VITALS: BP 136/70
== END 2020-10-22 13:35 | disposition home health service (06) | DRG 280 ==
LOC: ER 18:25 → TELE 10-12 01:27 → TELE-CENTR 10-12 04:51
PROVIDERS: ADMIT Nurse Practitioner Family; ATTEND Internal Medicine
PROC: 4A023N7 Measurement of Cardiac Sampling and Pressure, Left Heart, Percutaneous Approach (ICD-10-PCS; principal; 2020-10-14)
PROC: B2111ZZ Fluoroscopy of Multiple Coronary Arteries using Low Osmolar Contrast (ICD-10-PCS; 2020-10-14)
PROC: B2151ZZ Fluoroscopy of Left Heart using Low Osmolar Contrast (ICD-10-PCS; 2020-10-14)
PROC: B21F1ZZ Fluoroscopy of Other Bypass Graft using Low Osmolar Contrast (ICD-10-PCS; 2020-10-14)
PROC: B2181ZZ Fluoroscopy of Left Internal Mammary Bypass Graft using Low Osmolar Contrast (ICD-10-PCS; 2020-10-14)
PROC: 02JA3ZZ Inspection of Heart, Percutaneous Approach (ICD-10-PCS; 2020-10-14)
PROC: B54MZZA Ultrasonography of Right Upper Extremity Veins, Guidance (ICD-10-PCS; 2020-10-19)
PROC: 05HB33Z Insertion of Infusion Device into Right Basilic Vein, Percutaneous Approach (ICD-10-PCS; 2020-10-19)
DX: I21.4 Non-ST elevation (NSTEMI) myocardial infarction (principal); N17.0 Acute kidney failure with tubular necrosis; I50.43 Acute on chronic combined systolic (congestive) and diastolic (congestive) heart failure; G93.41 Metabolic encephalopathy; I13.0 Hypertensive heart and chronic kidney disease with heart failure and stage 1 through stage 4 chronic kidney disease, or unspecified chronic kidney disease; L03.116 Cellulitis of left lower limb; L97.929 Non-pressure chronic ulcer of unspecified part of left lower leg with unspecified severity; E44.0 Moderate protein-calorie malnutrition; E87.1 Hypo-osmolality and hyponatremia; R65.10 Systemic inflammatory response syndrome (SIRS) of non-infectious origin without acute organ dysfunction; L03.115 Cellulitis of right lower limb; Z20.822 Contact with and (suspected) exposure to COVID-19; B96.5 Pseudomonas (aeruginosa) (mallei) (pseudomallei) as the cause of diseases classified elsewhere; I25.10 Atherosclerotic heart disease of native coronary artery without angina pectoris; E11.65 Type 2 diabetes mellitus with hyperglycemia; D63.8 Anemia in other chronic diseases classified elsewhere; S80.922A Unspecified superficial injury of left lower leg, initial encounter; E11.21 Type 2 diabetes mellitus with diabetic nephropathy; E88.09 Other disorders of plasma-protein metabolism, not elsewhere classified; E03.9 Hypothyroidism, unspecified; E55.9 Vitamin D deficiency, unspecified; E87.6 Hypokalemia; E87.5 Hyperkalemia; N18.31 Chronic kidney disease, stage 3a; E66.9 Obesity, unspecified; I25.5 Ischemic cardiomyopathy; E11.22 Type 2 diabetes mellitus with diabetic chronic kidney disease; E78.5 Hyperlipidemia, unspecified; F17.200 Nicotine dependence, unspecified, uncomplicated; E11.42 Type 2 diabetes mellitus with diabetic polyneuropathy; N14.1 Nephropathy induced by other drugs, medicaments and biological substances; T50.8X5A Adverse effect of diagnostic agents, initial encounter; Z68.33 Body mass index [BMI] 33.0-33.9, adult; Z79.4 Long term (current) use of insulin; Z80.0 Family history of malignant neoplasm of digestive organs; Z82.49 Family history of ischemic heart disease and other diseases of the circulatory system; Z83.3 Family history of diabetes mellitus; Z91.19 Patient's noncompliance with other medical treatment and regimen; Z95.1 Presence of aortocoronary bypass graft; Z98.61 Coronary angioplasty status
CPT/HCPCS: 36415; 70450; 71045; 71046; 76775; 78582; 80048; 80053; 80061; 81001; 82306; 82607; 82746; 82962; 83036; 83605; 83735; 83880; 83970; 84132; 84443; 84484; 85025; 85379; 85610; 85730; 86850; 86900; 86901; 87040; 87077; 87086; 87186; 87205; 87426; 93005; 93306; 93459; 93970; 95819; 96365; 96372; 96375; 97110; 97116; 97530; 99152; 99153; C1769; C1887; G0378; J0610; J0696; J1815; J1956; J2250; J3490; Q9956; Q9967